=== PATIENT | female | born 2000 | race African-American/Black ===

== ENCOUNTER → 2023-09-18 | Emergency (ER) | payer OTHER ==
[~2023-09-18] MED LIST: ACETAMINOPHEN 500 MG TAB ONE
--- NOTE | 2023-09-18 22:28 | EDPHYS ---
Physician Documentation [facility] Name: Cassie Xiong Age: 23 yrs Sex: Female : 2000 Arrival Date: 09/18/2023 Time: 21:15 Bed 10 Private MD: ED Physician Pankaj Cutler HPI: 09/17 21:46 This 23 yrs old Black Female presents to ER via Unassigned with complaints of Fall sb4 Injury, 16 wks . 21:47 patient states she slipped on some water while on the stairs and fell on her side. she sb4 is complaining of pain in her left lower back. no other injuries. 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 no abdominal trauma or head trauma, no bleeding/wounds. 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 - Social history:: Smoking status: Patient denies any tobacco usage or history of. ROS: 21:47 Constitutional: Negative for fever, chills, and weight loss, sb4 21:47 Back: Positive for injury or acute deformity, pain at rest, of the left low back, 21:47 All other systems are negative, Exam: 21:47 Constitutional: This is a well developed, well nourished patient who is awake, alert, sb4 and in no acute distress. Head/Face: Normocephalic, atraumatic. Eyes: Extra-ocular motions intact. Periorbital areas with no swelling, redness, or edema. ENT: Mucous membranes moist. Cardiovascular: Regular rate and rhythm with a normal S1 and S2. Respiratory: Lungs have equal breath sounds bilaterally, clear to auscultation and percussion. No rales, rhonchi or wheezes noted. No increased work of breathing, no retractions or nasal flaring. Abdomen/GI: Soft, non-tender, no distension. Skin: Warm, dry with normal turgor. Normal color with no rashes, no lesions, and no evidence of cellulitis. MS/ Extremity: Pulses equal, no cyanosis. Neurovascular intact. Full, normal range of motion. Neuro: Awake and alert, GCS 15, oriented to person, place, time, and situation. Motor strength 5/5 in all extremities. Sensory grossly intact. 21:47 Back: pain, that is mild, of the left low back, ROM is normal, normal spinal alignment noted, CVA tenderness, is absent, muscle spasm, is not present, Vital Signs: 21:56 BP 106 / 62; Pulse 83; Resp 14; Temp 98.1; Pulse Ox 100% ; Weight 63.05 kg; Height 5 vc1 ft. 3 in. ; Pain 5/10; 21:56 Body Mass Index 24.62 (63.05 kg, 160.02 cm) vc1 21:56 Pain Scale: Adult vc1 MDM: 21:42 Patient medically screened. sb4 22:27 Data reviewed: vital signs, nurses notes, and as a result, I will discharge patient. sb4 Test considered but Not performed: X-ray: low suspicion for bony injury, will defer xray due to . Counseling: I had a detailed discussion with the patient and/or guardian regarding the historical points, exam findings, and any diagnostic results supporting the discharge/admit diagnosis, radiology results, to return to the emergency department if symptoms worsen or persist or if there are any questions or concerns that arise at home. 03 21:46 Order name: FHT's; Complete Time: 22:09 sb4 09/17 21:46 Order name: Ice pack; Complete Time: 22:09 sb4 Administered Medications: 22:09 Drug: Acetaminophen PO 1000 mg PO once Route: PO; vc1 Disposition: 09/18 02:18 I was immediately available on-site in the Emergency Department for consultation in the ms3 care of the patient. Disposition Summary: 09/18/23 22:27 Discharge Ordered Notes: Location: Home sb4 Problem: new sb4 Symptoms: have improved sb4 Condition: Stable sb4 Diagnosis - Strain of muscle, fascia and tendon of lower back sb4 Followup: sb4 - With: Emergency Department - When: As needed - Reason: Trouble breathing, Worsening of condition Discharge Instructions: - Discharge Summary Sheet sb4 - Back Pain in sb4 Forms: - Thank You Letter sb4 - Patient Portal Instructions sb4 - Leadership Thank You Letter sb4 Signatures: Pankaj Cutler, DO KEEN ms3 Jillian Sands RN RN vc1 Dayana Watkins, JORGE ALBERTO AZUL sb4
--- NOTE | 2023-09-18 22:28 | ER ---
Nurse's Notes [facility] Name: Cassie Xiong Age: 23 yrs Sex: Female : 2000 Arrival Date: 09/18/2023 Time: 21:15 Bed 10 Private MD: Diagnosis: Strain of muscle, fascia and tendon of lower back Presentation: 09/17 21:49 Chief complaint:. vc1 21:57 Coronavirus screen: Vaccine status: Patient reports receiving the 2nd dose of the covid vc1 vaccine. At this time, the client does not indicate any symptoms associated with coronavirus-19. Ebola Screen: Patient negative for fever greater than or equal to 101.5 degrees Fahrenheit, and additional compatible Ebola Virus Disease symptoms Patient denies exposure to infectious person. Patient denies travel to an Ebola-affected area in the 21 days before illness onset. No symptoms or risks identified at this time. Initial Sepsis Screen: Does the patient meet any 2 criteria? No. Patient's initial sepsis screen is negative. Does the patient have a suspected source of infection? No. Patient's initial sepsis screen is negative. Risk Assessment: Do you want to hurt yourself or someone else? Patient reports no desire to harm self or others. Onset of symptoms was September 18, 2023. 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 - Social history:: Smoking status: Patient denies any tobacco usage or history of. Screenin:57 [facility] ED Fall Risk Assessment (Adult) History of falling in the last 3 months, vc1 including since admission No falls in past 3 months (0 pts) Confusion or Disorientation No (0 pts) Intoxicated or Sedated No (0 pts) Impaired Gait No (0 pts) Mobility Assist Device Used No (0 pt) Altered Elimination No (0 pt) Score/Fall Risk Level 0 - 2 = Low Risk Oriented to surroundings, Maintained a safe environment, Educated pt \T\ family on fall prevention, incl call for assistance when getting out of bed. Abuse screen: Denies threats or abuse. Nutritional screening: No deficits noted. Tuberculosis screening: No symptoms or risk factors identified. Assessment: 21:53 General: Appears in no apparent distress. comfortable, Behavior is calm, cooperative, vc1 appropriate for age. Pain: Complains of pain in left hip and left low back Pain does not radiate. Pain currently is 4 out of 10 on a pain scale. Quality of pain is described as sharp, Pain began suddenly. Neuro: Level of Consciousness is awake, alert, obeys commands, Oriented to person, place, time, situation, Appropriate for age. Cardiovascular: No deficits noted. Cardiovascular: Heart tones S1 S2. Respiratory: Airway is patent Respiratory effort is even, unlabored, Respiratory pattern is regular, symmetrical, Breath sounds are clear. GI: No deficits noted. No signs and/or symptoms were reported involving the gastrointestinal system. : No deficits noted. No signs and/or symptoms were reported regarding the genitourinary system. EENT: No deficits noted. No signs and/or symptoms were reported regarding the EENT system. Derm: No deficits noted. No signs and/or symptoms reported regarding the dermatologic system. Musculoskeletal: Reports pain in left hip and left low back. Vital Signs: 21:56 BP 106 / 62; Pulse 83; Resp 14; Temp 98.1; Pulse Ox 100% ; Weight 63.05 kg; Height 5 vc1 ft. 3 in. ; Pain 5/10; 21:56 Body Mass Index 24.62 (63.05 kg, 160.02 cm) vc1 21:56 Pain Scale: Adult vc1 Vitals: 22:21 Heart Tones 166 BPM. vc1 ED Course: 21:18 Patient arrived in ED. ra3 21:19 Dayana Watkins PA-C is PHCP. sb4 21:19 Pankaj Cutler DO is Attending Physician. sb4 21:58 Triage completed. vc1 21:58 Arm band placed on right wrist. vc1 21:58 Patient has correct armband on for positive identification. Bed in low position. Pulse vc1 ox on. NIBP on. 23:02 No provider procedures requiring assistance completed. Patient did not have IV access vc1 during this emergency room visit. 23:03 Provided Education on: Can take tylenol for pain. . vc1 Administered Medications: 22:09 Drug: Acetaminophen PO 1000 mg PO once Route: PO; vc1 Medication: 21:58 VIS not applicable for this client. vc1 Outcome: 22:27 Discharge ordered by . sruthi 23:03 Discharged to home ambulatory, vc1 23:03 Condition: good 23:03 Discharge instructions given to patient, Instructed on discharge instructions, follow up and referral plans. Demonstrated understanding of instructions, follow-up care, 23:04 Patient left the ED. vc1 Signatures: Jillian Sands RN RN vc1 Dayana Watkins PA-C PAAnmolC mandie4 Bethany Canales ra3
[2023-09-18 23:41] VITALS: BP 106/62; TEMP 98.1; O2SAT 100
== END ==
LOC: ER 21:15
DX: O9A.212 Injury, poisoning and certain other consequences of external causes complicating pregnancy, second trimester (principal); S39.012A Strain of muscle, fascia and tendon of lower back, initial encounter; W01.0XXA Fall on same level from slipping, tripping and stumbling without subsequent striking against object, initial encounter; Z3A.16 16 weeks gestation of pregnancy
CPT/HCPCS: 99284

== ENCOUNTER 2024-01-05 09:38 | Emergency (ER) | payer OTHER ==
--- NOTE | 2024-01-05 10:23 | ER ---
Nurse's Notes [facility] Name: Cassie Xiong Age: 23 yrs Sex: Female : 2000 Arrival Date: 01/05/2024 Time: 09:38 Bed 1 Private MD: Diagnosis: 32 weeks gestation of ;Pelvic and perineal pain Presentation: 01/04 09:58 Chief complaint: Patient states: she started having vaginal pain yesterday at 1600 and kc6 dizziness this AM. pt denies pain today. Coronavirus screen: At this time, the client does not indicate any symptoms associated with coronavirus-19. Ebola Screen: No symptoms or risks identified at this time. Initial Sepsis Screen: Does the patient meet any 2 criteria? No. Patient's initial sepsis screen is negative. Does the patient have a suspected source of infection? No. Patient's initial sepsis screen is negative. Risk Assessment: Do you want to hurt yourself or someone else? Patient reports no desire to harm self or others. Onset of symptoms was January 04, 2024 at 16:00. 09:58 Method Of Arrival: Ambulatory [facility] 09:58 Acuity: CARLOS 3 kc6 Triage Assessment: 10:00 General: Appears in no apparent distress. comfortable, well groomed, well developed, kc6 Behavior is calm, cooperative, appropriate for age. Pain: Denies pain. EENT: No signs and/or symptoms were reported regarding the EENT system. Neuro: Level of Consciousness is awake, alert, obeys commands, Oriented to person, place, time, situation, Appropriate for age Reports dizziness. Cardiovascular: Capillary refill < 3 seconds. Respiratory: Airway is patent Trachea midline Respiratory effort is even, unlabored, Respiratory pattern is regular, symmetrical. GI: No signs and/or symptoms were reported involving the gastrointestinal system. : Denies cramping vaginal bleeding. Derm: No signs and/or symptoms reported regarding the dermatologic system. Skin is intact, is healthy with good turgor, Skin is pink, warm \T\ dry. Musculoskeletal: No signs and/or symptoms reported regarding the musculoskeletal system. Circulation, motion, and sensation intact. Capillary refill < 3 seconds, Range of motion: intact in all extremities. 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 - Infectious Disease History:: Denies. - Social history:: Smoking status: Patient denies any tobacco usage or history of. Screenin:01 [facility] ED Fall Risk Assessment (Adult) History of falling in the last 3 months, [facility] including since admission No falls in past 3 months (0 pts) Confusion or Disorientation No (0 pts) Intoxicated or Sedated No (0 pts) Impaired Gait No (0 pts) Mobility Assist Device Used No (0 pt) Altered Elimination No (0 pt) Score/Fall Risk Level 0 - 2 = Low Risk. Abuse screen: Denies threats or abuse. Denies injuries from another. Nutritional screening: No deficits noted. Tuberculosis screening: No symptoms or risk factors identified. Assessment: 10:02 Reassessment: please see triage. [facility] 10:14 Reassessment: Dr. Hurt at bedside. [facility] 10:33 Reassessment: Patient appears in no apparent distress at this time. No changes from db previously documented assessment. Patient and/or family updated on plan of care and expected duration. Pain level reassessed. Patient is alert, oriented x 3, equal unlabored respirations, skin warm/dry/pink. Patient states feeling better. Patient states symptoms have improved. 10:33 General: Appears in no apparent distress. comfortable, Behavior is calm, cooperative. db Neuro: Level of Consciousness is awake, alert, obeys commands, Oriented to person, place, time, situation. Respiratory: Airway is patent Respiratory effort is even, unlabored, Respiratory pattern is regular, symmetrical. Vital Signs: 09:58 BP 127 / 90; Pulse 116; Resp 18 S; Temp 98.2(TE); Pulse Ox 98% on R/A; Weight 79.38 kg [facility] (R); Height 5 ft. 4 in. (R); Pain 0/10; 09:58 Body Mass Index 30.04 (79.38 kg, 162.56 cm) [facility] 09:58 Pain Scale: Adult [facility] Vitals: 10:14 Heart Tones 156 bpm. [facility] ED Course: 09:39 Patient arrived in ED. mr 09:49 Talia Hurt MD is Attending Physician. gb1 09:52 Maritza Rabago, RN is Primary Nurse. kc6 10:00 Triage completed. kc6 10:00 Arm band placed on. kc6 10:01 Patient has correct armband on for positive identification. Placed in gown. Bed in low kc6 position. Call light in reach. Side rails up X 1. Adult w/ patient. Pulse ox on. NIBP on. Door closed. Noise minimized. Lights dimmed. Warm blanket given. Pillow given. 10:33 Provided Education on: DISCHARGE. db 10:33 No provider procedures requiring assistance completed. Patient did not have IV access db during this emergency room visit. Administered Medications: No medications were administered Medication: 10:33 VIS not applicable for this client. db Outcome: 10:23 Discharge ordered by MD. gb1 10:33 Discharged to home ambulatory, db 10:33 Discharged to home ambulatory, with family, 10:33 Condition: stable 10:33 Discharge instructions given to patient, Instructed on discharge instructions, follow up and referral plans. 10:33 Discharge instructions given to family, Instructed on 10:35 Patient left the ED. db Signatures: Estelle Tinsley, Reg Reg Maritza Rabago, RN RN kc6 Lara Montanez, MARINO RN db Talia Hurt MD MD gb1
--- NOTE | 2024-01-05 10:23 | EDPHYS ---
Physician Documentation [facility] Name: Cassie Xiong Age: 23 yrs Sex: Female : 2000 Arrival Date: 01/05/2024 Time: 09:38 Bed 1 Private MD: ED Physician Talia Hurt HPI: 01/04 10:19 This 23 yrs old Black Female presents to ER via Ambulatory with complaints of 32 wks gb1 , Pelvic Pain, Dizziness. 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 - Infectious Disease History:: Denies. - Social history:: Smoking status: Patient denies any tobacco usage or history of. Exam: 10:23 Constitutional: This is a well developed, well nourished patient who is awake, alert, gb1 and in no acute distress. Head/Face: Normocephalic, atraumatic. Eyes: Pupils equal round and reactive to light, extra-ocular motions intact. Lids and lashes normal. Conjunctiva and sclera are non-icteric and not injected. Cornea within normal limits. Periorbital areas with no swelling, redness, or edema. ENT: Nares patent. No nasal discharge, no septal abnormalities noted. Tympanic membranes are normal and external auditory canals are clear. Oropharynx with no redness, swelling, or masses, exudates, or evidence of obstruction, uvula midline. Mucous membranes moist. Neck: Trachea midline, no thyromegaly or masses palpated, and no cervical lymphadenopathy. Supple, full range of motion without nuchal rigidity, or vertebral point tenderness. No Meningismus. Chest/axilla: Normal chest wall appearance and motion. Nontender with no deformity. No lesions are appreciated. Cardiovascular: Regular rate and rhythm with a normal S1 and S2. No gallops, murmurs, or rubs. Normal PMI, no JVD. No pulse deficits. Respiratory: Lungs have equal breath sounds bilaterally, clear to auscultation and percussion. No rales, rhonchi or wheezes noted. No increased work of breathing, no retractions or nasal flaring. Abdomen/GI: Soft, non-tender, with normal bowel sounds. No distension or tympany. No guarding or rebound. No evidence of tenderness throughout. Skin: Warm, dry with normal turgor. Normal color with no rashes, no lesions, and no evidence of cellulitis. MS/ Extremity: Pulses equal, no cyanosis. Neurovascular intact. Full, normal range of motion. Neuro: Awake and alert, GCS 15, oriented to person, place, time, and situation. Cranial nerves II-XII grossly intact. Motor strength 5/5 in all extremities. Sensory grossly intact. Cerebellar exam normal. Normal gait. 10:53 Abdomen/GI: Gravid uterus to 10 cm above the umbilicus. Positive heart tones on gb1 bedside heart tone monitor at 156 bpm. Vital Signs: 09:58 BP 127 / 90; Pulse 116; Resp 18 S; Temp 98.2(TE); Pulse Ox 98% on R/A; Weight 79.38 kg kc6 (R); Height 5 ft. 4 in. (R); Pain 0/10; 09:58 Body Mass Index 30.04 (79.38 kg, 162.56 cm) [facility] 09:58 Pain Scale: Adult kc6 MDM: 09:49 Patient medically screened. gb1 10:19 Data reviewed: vital signs, nurses notes. gb1 10:23 ED course: here with pelvic pressure and single 32 wk IUP, FHT 150's, no bleeding, gb1 no vaginal discharge. I doubt this time PPROM, blood pressure is also stable I doubt preeclampsia. Patient is established at [facility] with Dr. Mccain to have spoken to by phone and the patient is reliable with her grandmother to go by POV to labor delivery triage at [facility]. Patient is discharged from the emergency department today with this was a return precautions which she is compliant with prior to discharge home today.. Administered Medications: No medications were administered Disposition Summary: 01/05/24 10:23 Discharge Ordered Notes: Location: Home gb1 Condition: Stable gb1 Diagnosis - 32 weeks gestation of gb1 - Pelvic and perineal pain gb1 Discharge Instructions: - Discharge Summary Sheet gb1 - Pelvic Pain, Female gb1 - Abdominal Pain During , [id number] gb1 Forms: - Work release form aa5 - Medication Reconciliation Form gb1 - Antibiotic Education gb1 - Prescription Opioid Use gb1 - Patient Portal Instructions gb1 - Leadership Thank You Letter gb1 Signatures: Maritza Rabago, RN RN kc6 Talia Hurt MD MD gb1
[2024-01-05 10:59] VITALS: BP 127/90; TEMP 98.2; O2SAT 98
== END 2024-01-05 10:35 | disposition home or self-care (01) ==
LOC: ER 09:38
DX: O26.893 Other specified pregnancy related conditions, third trimester (principal); R10.2 Pelvic and perineal pain; Z3A.32 32 weeks gestation of pregnancy
CPT/HCPCS: 99283